=== PATIENT | female | born 1960 | race Caucasian/White ===

== ENCOUNTER 2022-03-24 11:58 | Inpatient (IN) ==
[2022-03-24] MEDS ORDERED: SODIUM CHLORIDE 1,000 ML IV STA (12:35)
[2022-03-24] MEDS ORDERED: ZOFRAN 4 MG/2 ML IVP ONE (12:35)
--- NOTE | 2022-03-24 12:39 | ED.PDOC ---
General ED Provider: Dr. AJIT GODDARD MD Chief Complaint: Nausea/Vomiting Stated Complaint: mild to mod off and on NVD today, +fatigue, no injury, hx GB surg, no fever, mild abdominal cramps diffuse and nonrad Time Seen by Provider: 03/24/22 12:05 Mode of Arrival: Walk-In Information Source: Patient Primary Care Provider: LILY SEGOVIA Nursing and Triage Documentation Reviewed and Agree: Yes Does patient meet sepsis criteria?: No System Inflammatory Response Syndrome: Not Applicable Sepsis Protocol: For patient's 13 years and over: Temp is 96.8 and below OR 101 and greater Pulse >90 BPM Resp >20/minute Acutely Altered Mental Status Are patient's symptoms suggestive of a new infection, such as: -Pneumonia -Skin, Soft Tissue -Endocarditis -UTI -Bone, Joint Infection -Implantable Device -Acute Abdominal Infection -Wound Infection -Meningitis -Blood Stream Catheter Infection -Unknown Review of Systems Review Of Systems Constitutional: Reports Malaise; Denies Fever Eyes: Denies Vision change Ears, Nose, Mouth, Throat: Denies Nose discharge Respiratory: Denies Short of air Cardiac: Denies Chest pain GI: Reports Abdominal pain, Diarrhea, Nausea and Vomiting : Denies Frequency Musculoskeletal: Denies Back pain Skin: Denies Cyanosis Neurological: Denies Cognitive dysfunction All Other Systems: Other [facility] Social History Smoking and tobacco status: Former smoker How long ago did patient quit smokin years Substance use type: does not use Female Reproductive History Menstrual Hx Hysterectomy: No Hx Tubal Ligation: Yes Physical Exam Physical Exam Appearance: Reports Obese Ill-appearing: Mild Pain Distress: None Eyes: Reports LUCY, EOMI and Conjunctiva clear ENT: Reports Oropharynx normal Neck: Supple Respiratory: Reports Airway patent, Breath sounds clear and Breath sounds equal Cardiovascular: Reports RRR GI/: Reports Soft and Nontender Musculoskeletal: Reports ROM intact Skin: Reports Warm and Dry Neurological: Reports Alert and Oriented Psychiatric: Reports Affect appropriate Interpretation Radiology Interpretation Radiology Interpretation By: Radiologist Exam Interpreted: CT Scan Xray Comments: enteritis, no obstruction or free air Radiology Interpretation By: Radiologist Radiology Results: No acute changes Exam Interpreted: CXR EKG Interpretation Time of EKG #1: 14:03 Rate: Normal Rhythm: Sinus Interpretation: no stemi Critical Care Note Critical Care Note Total Critical Care Time (mins): 0 Course Course Hematology/Chemistry: 03/24/22 12:45 03/24/22 12:45 Orders, Labs, Meds: Lab Review 03/24/22 03/24/22 03/24/22 12:45 12:45 12:45 WBC 20.73 H RBC 4.74 Hgb 14.6 Hct 45.9 MCV 96.8 MCH 30.8 MCHC 31.8 RDW Coeff of Татьяна 13.0 Plt Count 328 Immature Gran % (Auto) 0.6 Neut % (Auto) 89.5 H Lymph % (Auto) 3.1 L Davidson % (Auto) 6.2 Eos % (Auto) 0.5 Baso % (Auto) 0.1 Neut # (Auto) 18.5 H Lymph # (Auto) 0.7 Davidson # (Auto) 1.3 Eos # (Auto) 0.1 Baso # (Auto) 0.0 Immature Gran # (Auto) 0.1 Sodium 140.0 Potassium 4.50 Chloride 109.0 H Carbon Dioxide 24.0 Anion Gap 11.50 BUN 18.0 H Creatinine 0.70 Estimated GFR (MDRD) 85.00 BUN/Creatinine Ratio 25.71 Glucose 114.0 H Lactic Acid 1.00 Calcium 8.90 Total Bilirubin 0.40 AST 34.0 ALT 24.0 Alkaline Phosphatase 112.0 POC Venous Troponin I Troponin I Pending Total Protein 7.70 Albumin 4.50 Globulin 3.20 Albumin/Globulin Ratio 1.40 Lipase 65.0 Urine Color Urine Clarity Urine pH Ur Specific [place] Urine Protein Urine Glucose (UA) Urine Ketones Urine Blood Urine Nitrite Urine Bilirubin Urine Urobilinogen Ur Leukocyte Esterase Urine Microscopic RBC Urine Microscopic WBC Ur Squamous Epith Cells Urine Bacteria Influ A Molecular Assay Influ B Molecular Assay SARS CoV-2 RNA Rapid HANNAH 03/24/22 03/24/22 03/24/22 12:45 12:50 13:00 WBC RBC Hgb Hct MCV MCH MCHC RDW Coeff of Татьяна Plt Count Immature Gran % (Auto) Neut % (Auto) Lymph % (Auto) Davidson % (Auto) Eos % (Auto) Baso % (Auto) Neut # (Auto) Lymph # (Auto) Davidson # (Auto) Eos # (Auto) Baso # (Auto) Immature Gran # (Auto) Sodium Potassium Chloride Carbon Dioxide Anion Gap BUN Creatinine Estimated GFR (MDRD) BUN/Creatinine Ratio Glucose Lactic Acid Calcium Total Bilirubin AST ALT Alkaline Phosphatase POC Venous Troponin I 0.00 Troponin I Total Protein Albumin Globulin Albumin/Globulin Ratio Lipase Urine Color Yellow Urine Clarity Clear Urine pH 5.0 Ur Specific [place] 1.025 Urine Protein Negative Urine Glucose (UA) Negative Urine Ketones 2+ H Urine Blood 3+ H Urine Nitrite Positive H Urine Bilirubin Negative Urine Urobilinogen 0.2 Ur Leukocyte Esterase 1+ H Urine Microscopic RBC 5-10 Urine Microscopic WBC 2-5 Ur Squamous Epith Cells 2-5 Urine Bacteria 2+ Influ A Molecular Assay Influ B Molecular Assay SARS CoV-2 RNA Rapid HANNAH Negative 03/24/22 13:00 WBC RBC Hgb Hct MCV MCH MCHC RDW Coeff of Татьяна Plt Count Immature Gran % (Auto) Neut % (Auto) Lymph % (Auto) Davidson % (Auto) Eos % (Auto) Baso % (Auto) Neut # (Auto) Lymph # (Auto) Davidson # (Auto) Eos # (Auto) Baso # (Auto) Immature Gran # (Auto) Sodium Potassium Chloride Carbon Dioxide Anion Gap BUN Creatinine Estimated GFR (MDRD) BUN/Creatinine Ratio Glucose Lactic Acid Calcium Total Bilirubin AST ALT Alkaline Phosphatase POC Venous Troponin I Troponin I Total Protein Albumin Globulin Albumin/Globulin Ratio Lipase Urine Color Urine Clarity Urine pH Ur Specific [place] Urine Protein Urine Glucose (UA) Urine Ketones Urine Blood Urine Nitrite Urine Bilirubin Urine Urobilinogen Ur Leukocyte Esterase Urine Microscopic RBC Urine Microscopic WBC Ur Squamous Epith Cells Urine Bacteria Influ A Molecular Assay Negative by naat Influ B Molecular Assay Negative by naat SARS CoV-2 RNA Rapid HANNAH Orders Category Date Time Status EKG-(ED ONLY) Stat CARDIO 03/24/22 12:35 Completed CBC W/ AUTO DIFF Stat LAB 03/24/22 12:45 Completed CMP [COMPREHENSIVE METABOLIC PANEL] Stat LAB 03/24/22 12:45 Results LACTIC ACID Stat LAB 03/24/22 12:45 Completed LIPASE Stat LAB 03/24/22 12:45 Results MOLECULAR FLU A & B [FLU A/B MOLECULAR] Stat LAB 03/24/22 13:00 Completed SARS COV-2 RNA RAPID HANNAH Stat LAB 03/24/22 13:00 Completed TROPONIN I Stat LAB 03/24/22 12:45 Results URINALYSIS C & S IF INDICATED Stat LAB 03/24/22 12:50 Completed URINE CULTURE Stat LAB 03/24/22 12:50 Received Ondansetron HCl/Pf [Zofran 4 mg/2 ml] MEDS 03/24/22 12:35 Discontinued 4 mg IVP ONCE ONE Sodium Chloride 0.9% [Sodium Chloride] 1,000 ml MEDS 03/24/22 12:35 Di scontinued IV BOLUS CHEST, 1V AP ONLY Stat RADS 03/24/22 12:[address] ABDOMEN/PELVIS WO CONTRAST Stat RADS 03/24/22 12:35 Completed Medications Discontinued Medications Generic Name Dose Route Start Last Admin Trade Name Freq PRN Reason Stop Dose Admin Sodium Chloride 1,000 mls @ 1,000 mls/hr 03/24/22 12:35 03/24/22 13:08 Sodium Chloride IV 03/24/22 13:34 1,000 mls/hr BOLUS STA Administration Ondansetron HCl 4 mg 03/24/22 12:35 03/24/22 13:10 Ondansetron Hcl/Pf 4 Mg/2 Ml Sdv IVP 03/24/22 12:36 4 mg ONCE ONE Administration Vital Signs: Temp Pulse Resp BP Pulse Ox 03/24/22 11:59 96.9 F L 100 14 100/55 L 98 Discharge Plan Discharge Patient Disposition: ADMITTED INPATIENT Discharge Problem: Enteritis, UTI (urinary tract infection) Prescriptions: No Action azithromycin [Zithromax] 250 mg tablet See Rx Instructions PO .COMPLEX Qty: 6 0RF Rx Instructions: take 500 mg today (day 1), then 250 mg for 4 days (days 2-5) 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
[2022-03-24 13:05] LABS: BASOPHILS % (AUTO) 0.1 % (0.0-3.0); EOSINOPHILS # (AUTO) 0.1 K/ul (0.0-0.7); EOSINOPHILS % (AUTO) 0.5 % (0.0-7.0); HEMATOCRIT 45.9 % (37.0-47.0); HEMOGLOBIN 14.6 g/dl (12.0-16.0); IMMATURE GRANULOCYTE # (AUTO) 0.1 (0.0-1.0); IMMATURE GRANULOCYTE % (AUTO) 0.6 % (0.0-5.0); LYMPHOCYTES # (AUTO) 0.7 K/uL (0.60-3.4); LYMPHOCYTES % (AUTO) 3.1 (10.0-50.0); MEAN CORPUSCULAR HEMOGLOBIN 30.8 pg (27.0-31.0); MEAN CORPUSCULAR HGB CONC 31.8 (31.8-35.4); MEAN CORPUSCULAR VOLUME 96.8 fl (81.0-99.0); MONOCYTES # (AUTO) 1.3 K/uL (0.4-2.0); MONOCYTES % (AUTO) 6.2 (0-10); NEUTROPHILS # (AUTO) 18.5 K/ul (2.0-6.9); NEUTROPHILS % (AUTO) 89.5 % (42.2-75.2); PLATELET COUNT 328 10^3/uL (140-440); RED BLOOD COUNT 4.74 10^6/ul (4.20-5.40); WHITE BLOOD COUNT 20.73 K/ul (4.6-10.2)
[2022-03-24 13:08] LABS: BILIRUBIN,URINE Negative (NEGATIVE); CLARITY,URINE Clear (CLEAR); COLOR,URINE Yellow (YELLOW); GLUCOSE, URINE (UA) Negative (NEGATIVE); KETONES,URINE 2+ (NEGATIVE); LEUKOCYTE ESTERASE ,URINE 1+ (NEGATIVE); NITRITE,URINE Positive (NEGATIVE); PROTEIN,URINE Negative (NEGATIVE); URINE, BLOOD 3+ (NEGATIVE); UROBILINOGEN,URINE 0.2 (0.2)
[2022-03-24 13:18] LABS: BACTERIA,URINE 2+ (NOT PRESENT)
--- NOTE | 2022-03-24 13:28 | DI ---
EXAM: Chest one view HISTORY: Vomiting COMPARISON: 06/12/2015 TECHNIQUE: Single view of the chest was performed FINDINGS: The lungs are clear. There is no pleural effusion or pneumothorax. The heart is normal i n size. The mediastinal contour is normal. There are no acute abnormalities of the bones. IMPRESSION: No acute cardiopulmonary process.
[2022-03-24 13:41] LABS: MOLECULAR FLU A NEGATIVE BY NAAT (NEGATIVE); MOLECULAR FLU B NEGATIVE BY NAAT (NEGATIVE)
--- NOTE | 2022-03-24 13:41 | CT ---
EXAM: CT abdomen pelvis without intravenous contrast 03/24/2022. Sagittal and coronal reformatted i mages obtained HISTORY: Vomiting COMPARISON: 10/23/2019 FINDINGS: The liver shows no acute abnormality. Benign appearing hepatic cyst appears stable. Gallbladder has been removed. The adrenal glands and kidneys show no acute process. There is no hydronephrosis. The spleen and pa ncreas show no acute abnormality. Diffusely fluid-filled small bowel and colon. This may represent enteritis/diarrhea. Correlate clin ically. No findings of bowel obstruction. The appendix appears within normal limits. Unremarkable urinary bladder. No free air. No free fluid. Bilateral L5 pars defects. Chronic 9 mm anterolisthesis of L5 on S1. IMPRESSION: 1. Diffusely fluid-filled small bowel and colon. Correlate for enteritis/diarrhea. 2. No urinary or bowel obstruction and normal appendix 3. Status post cholecystectomy. 4. Anterolisthesis of L5 on S1 secondary to chronic bilateral L5 pars defects 5. Stable benign appearing hepatic cyst. 6. Limited examination due to lack of intravenous contrast. All CT scans are performed using dose optimization techniques as appropriate to the performed exam an d include at least one of the following: Automated exposure control, adjustment of the mA and/or kV according t o size, and the use of iterative reconstruction technique.
[2022-03-24 13:55] LABS: SARS COV-2 RNA RAPID NAAT NEGATIVE (NEGATIVE)
[2022-03-24] MEDS ORDERED: ZOFRAN 4 MG/2 ML IVP PRN (14:06)
[2022-03-24] MEDS ORDERED: LEVAQUIN 750 MG/150 ML D5W 750 MG/150 ML BAG IV ONE (14:06)
[2022-03-24] MEDS ORDERED: TYLENOL PO PRN (14:06)
[2022-03-24] MEDS ORDERED: ZITHROMAX PO SCH (14:30)
[2022-03-24 15:17] VITALS: BMI 22.9
[2022-03-24] MEDS: SODIUM CHLORIDE 1,000 ML IV SCH (16:42)
[2022-03-24 17:15] LABS: TROPONIN I < 0.012 ng/ml (0.0000-0.120)
[2022-03-25] MEDS: SODIUM CHLORIDE 1,000 ML IV SCH (04:17)
[2022-03-25 05:02] LABS: BASOPHILS % (AUTO) 0.1 % (0.0-3.0); EOSINOPHILS # (AUTO) 0.1 K/ul (0.0-0.7); HEMATOCRIT 40.5 % (37.0-47.0); HEMOGLOBIN 12.9 g/dl (12.0-16.0); IMMATURE GRANULOCYTE % (AUTO) 0.2 % (0.0-5.0); LYMPHOCYTES # (AUTO) 1.5 K/uL (0.60-3.4); LYMPHOCYTES % (AUTO) 17.4 (10.0-50.0); MEAN CORPUSCULAR HEMOGLOBIN 31.1 pg (27.0-31.0); MEAN CORPUSCULAR HGB CONC 31.9 (31.8-35.4); MEAN CORPUSCULAR VOLUME 97.6 fl (81.0-99.0); MONOCYTES # (AUTO) 1.1 K/uL (0.4-2.0); MONOCYTES % (AUTO) 12.5 (0-10); NEUTROPHILS % (AUTO) 68.8 % (42.2-75.2); PLATELET COUNT 289 10^3/uL (140-440); RDW COEFFICIENT OF VARIATION 13.2 % (11.6-14.8); RED BLOOD COUNT 4.15 10^6/ul (4.20-5.40); WHITE BLOOD COUNT 8.79 K/ul (4.6-10.2)
[2022-03-25 05:07] VITALS: TEMP 97.7
[2022-03-25 05:13] LABS: ALANINE AMINOTRANSFERASE 21.3 U/L (0-35); ALBUMIN 3.65 g/dL (3.5-5.0); ALKALINE PHOSPHATASE 82.2 U/L (53-141); ASPARTATE AMINO TRANSFERASE 40.5 U/L (14-36); BILIRUBIN,TOTAL 0.39 mg/dL (0.2-1.3); BLOOD UREA NITROGEN 10.4 mg/dL (7-17); CALCIUM 7.87 mg/dL (8.4-10.2); CARBON DIOXIDE 26.6 mmol/L (22-30.0); CHLORIDE 108.7 mmol/L (98-107); CREATININE 0.73 mg/dL (0.60-1.30); GLUCOSE 106.1 mg/dL (74-106); POTASSIUM 3.49 mmol/L (3.5-5.1); SODIUM 139.5 mmol/L (134.5-145); TOTAL PROTEIN 6.62 g/dL (6.3-8.2)
[2022-03-25] MEDS ORDERED: LEVAQUIN 750 MG/150 ML D5W 750 MG/150 ML BAG IV SCH (09:00)
--- NOTE | 2022-03-25 09:06 | PCM.PROG ---
Date Seen by Provider: 03/25/22 Time Seen by Provider: 09:05 Subjective: Patient feeling much better. Tolerated clear liquids for breakfast. Still with diarrhea. Objective: Vitals: T=97.7 F, P=72, R=18, BP=91/60, SPO2=98 Alert and in NAD. Appears comfor table. HEENT: [] Oral mucosa moist Neck: [] Lungs: [] Clear. BS equal. CVS: [] RRR. No peripheral edema. Abdomen: [] Abdomen soft and nontender. Extremities: [] Neurological: [] Skin: [] Lab/Tests/Diagnostic Imaging: [] (1) Enteritis: Status: Acute Code(s): K52.9 - Noninfective gastroenteritis and colitis, unspecified SNOMED Code(s): 39361823 Assessment: Improved. (2) UTI (urinary tract infection): Status: Acute Code(s): N39.0 - Urinary tract infection, site not specified SNOMED Code(s): 66296817 (3) Hypocalcemia: Status: Acute Code(s): E83.51 - Hypocalcemia SNOMED Code(s): 2290393 Assessment: Asymptomatic. (4) Acute hypokalemia: Status: Acute Code(s): E87.6 - Hypokalemia SNOMED Code(s): 43080990 Plan: Replace potassium and calcium deficits. Continue levaquin. Home later today if tolerates regular diet.
[2022-03-25] MEDS ORDERED: K-DUR PO ONE (09:10)
[2022-03-25] MEDS ORDERED: CALCIUM 500 + VIT D 5 MCG (200 IU) TABLET PO SCH (09:30)
[2022-03-25 13:28] VITALS: BP 100/63
--- NOTE | 2022-03-25 18:03 | PCM.DC ---
Final Diagnosis: gastroenteritis acute urinary tract infection hypocalcemia acute hypokalemia Physical Exam Appearance: Well-appearing, No pain distress and Well-nourished Ill-appearing: None Pain Distress: None Eyes: Not Examined ENT: Nose normal and Oropharynx normal Neck: Supple Respiratory: Airway patent, Breath sounds clear and Breath sounds equal Cardiovascular: RRR, No rub and No murmur GI/: Soft, Nontender, No masses and Bowel sounds normal Musculoskeletal: Normal strength, ROM intact and No edema Skin: Warm, Dry and Normal color Neurological: Alert and Oriented Psychiatric: Affect appropriate and Mood appropriate (1) Enteritis: Status: Acute Code(s): K52.9 - Noninfective gastroenteritis and colitis, unspecified SNOMED Code(s): 47211340 (2) UTI (urinary tract infection): Status: Acute Code(s): N39.0 - Urinary tract infection, site not specified SNOMED Code(s): 32008114 (3) Hypocalcemia: Status: Acute Code(s): E83.51 - Hypocalcemia SNOMED Code(s): 8938047 (4) Acute hypokalemia: Status: Acute Code(s): E87.6 - Hypokalemia SNOMED Code(s): 19635589 Reason for Hospitalization: Acute gastroenteritis acute urinary tract infection Prognosis/Condition at Discharge: Condition at discharge was good. Medications at Discharge: Levaquin Education Provided to Patient and Family: gastroenteritis acute urinary tract infection Follow-ups: Follow up with your primary care provider next week. Discharge Disposition: Home Hospital Course: Patient admitted with acute gastroenteritis. She received IV fluid hydration. She was placed on a clear liquid diet and this was advanced as tolerated. Her nausea, emesis and diarrhea resolved. Patient was also noted to have a UTI for which she received levaquin. Her hypokalemia and hypocalcemia were corrected with oral supplements. Plan: Follow up with your primary care provider next week.
== END 2022-03-25 18:33 | disposition home or self-care (01) | DRG 392 ==
LOC: ED 11:58 → MEDSURG A 14:32
PROVIDERS: ADMIT Emergency Medicine Emergency Medical Services; ATTEND Surgery
DX: Z20.822 Contact with and (suspected) exposure to COVID-19; N39.0 Urinary tract infection, site not specified; Z87.891 Personal history of nicotine dependence; K52.9 Noninfective gastroenteritis and colitis, unspecified; E83.51 Hypocalcemia; E87.6 Hypokalemia